=== PATIENT | female | born 2000 ===

== ENCOUNTER 2021-05-23 03:57 | Emergency (ER) | payer MEDICAID, OTHER ==
[~2021-05-23] VITALS: Ht 172.7 cm; Wt 68.0 kg
[2021-05-23 04:49] VITALS: BP 128/76
== END 2021-05-23 05:42 | disposition home or self-care (01) ==
LOC: ER 03:57
DX: S03.42XA Sprain of jaw, left side, initial encounter (principal); Y08.89XA Assault by other specified means, initial encounter; Y93.89 Activity, other specified; Y92.89 Other specified places as the place of occurrence of the external cause; Y99.8 Other external cause status